=== PATIENT | male | born 1965 | race Caucasian/White ===

== ENCOUNTER 2017-05-31 14:06 | Emergency (ER) | payer BC ==
[~2017-05-31] VITALS: Ht 190.5 cm; Wt 140.0 kg
[~2017-05-31 14:06] MED LIST: CIPRO500 MG OR; DIOVAN40 MG PO; HYDROCHLOROT12.5 MG PO; NAPROXEN375 MG OR; PRILOSEC20 MG/CAP PO
[2017-05-31] MEDS ORDERED: METFORMIN500 MG PO (14:15)
[2017-05-31 16:35] LABS: HEMATOCRIT 50.1 % (39.0-50.0); HEMOGLOBIN 16.7 g/dl (14.0-18.0); IMMATURE GRANULOCYTES 0.9 % (0.0-1.0); MEAN CORPUSCULAR HGB 29.1 pG CALC (26.0-32.0); MEAN CORPUSCULAR HGB CONC 33.3 g/L CALC (32.0-36.0); NEUT# 6.23 thou/uL (1.82-7.42); RED BLOOD COUNT 5.74 mill/uL (4.70-6.10); RED CELL DISTRI WIDTH 14.3 % (11.5-15.5)
[2017-05-31 16:36] LABS: MEAN CELL VOLUME 87.3 fL CALC (80.0-100.0)
[2017-05-31 16:47] LABS: ALBUMIN 4.2 g/dL (3.2-5.0); ALKALINE PHOSPHATASE 115 u/l (38-126); ANION GAP 15 (6-22 (CALC)); BILIRUBIN, TOTAL 1.1 mg/dL (0.0-1.4); BUN 13 mg/dL (9-20); BUN/CREATININE RATIO 14 (12-20 (CALC)); CARBON DIOXIDE 28 mmol/l (22-30); CHLORIDE 105 mmol/l (95-108); CREATININE 0.9 mg/dL (0.7-1.3); GFR > 60 ML/MIN (>=60 (CALC)); GFR FOR AFR.AMER. > 60 ML/MIN (>=60 (CALC)); SGOT/AST 35 u/l (17-59); SGPT/ALT 42 u/l (21-72); SODIUM 143 mmol/l (137-146); TOTAL PROTEIN 7.3 g/dL (6.3-8.2)
[2017-05-31 17:03] LABS: POTASSIUM 4.8 mmol/l (3.5-5.1)
[2017-05-31] MEDS ORDERED: DOXYCYC MONO100 M2 PO (17:18)
[2017-05-31] MEDS ORDERED: MOTRIN400 MG PO (18:26)
[2017-05-31] MEDS ORDERED: ZOFRAN4 M1 PO (18:26)
[2017-05-31] MEDS ORDERED: HYDROCO/APAP1 TA9 PO (18:26)
[2017-05-31 18:35] VITALS: BP 133/74
== END 2017-05-31 18:35 | disposition home or self-care (01) | DRG 605 ==
LOC: ED 14:06
PROVIDERS: Family Medicine
DX: S80.212A Abrasion, left knee, initial encounter (principal); M25.562 Pain in left knee; R07.81 Pleurodynia; W01.0XXA Fall on same level from slipping, tripping and stumbling without subsequent striking against object, initial encounter; Y93.01 Activity, walking, marching and hiking; Y92.410 Unspecified street and highway as the place of occurrence of the external cause
CPT/HCPCS: Q9967

== ENCOUNTER 2018-03-20 17:25 | Emergency (ER) | payer BC ==
[~2018-03-20] VITALS: Ht 188 cm; Wt 125.0 kg
[~2018-03-20 17:25] MED LIST changes: +DOXYCYC MONO100 M2 PO; +HYDROCO/APAP1 TA9 PO; +LOSARTAN; +METFORMIN500 MG PO; +MOTRIN400 MG PO; +PHENTERMINE37.5 MG PO; +ZOFRAN4 M1 PO
[2018-03-20] MEDS ORDERED: TIZANIDINE HCL2 MG PO (17:32)
[2018-03-20] MEDS ORDERED: METHOCARBAMOL500 MG PO (17:32)
[2018-03-20] MEDS ORDERED: LOSARTAN POT50 MG PO (17:33)
[2018-03-20] MEDS ORDERED: AMLODIPINE5 MG PO (17:33)
[2018-03-20] MEDS ORDERED: TORADOL PO (18:27)
[2018-03-20] MEDS ORDERED: ZITHROMAX250 MG PO (18:27)
[2018-03-20] MEDS ORDERED: TAM75CAP PO (18:27)
[2018-03-20 18:33] VITALS: BP 151/83
== END 2018-03-20 18:36 | disposition home or self-care (01) | DRG 204 ==
LOC: ED 17:25
DX: R05 Cough (principal); J06.9 Acute upper respiratory infection, unspecified; B34.9 Viral infection, unspecified; R09.81 Nasal congestion; R51 Headache